=== PATIENT | female | born 1960 | race Caucasian/White ===

== ENCOUNTER → 2017-10-06 | Outpatient (REF) ==
[~2017-10-06] MED LIST: AML5 PO; ASC500 PO; CAND1TAB16 PO; CYCL10TA29 PO; DICL-195 PO; ERGO500025 PO; HYDR12.561 PO; IBU800 PO; LEV112 PO; LISI-346 PO; LOR5/325 PO; NAP550 PO; OMEP-218 PO
[2017-10-06 10:57] LABS: LDL CHOLESTEROL 92 mg/dl
== END ==
DX: Z02.9 Encounter for administrative examinations, unspecified (principal)

== ENCOUNTER → 2018-03-29 | Outpatient (CLI) | payer OTHER | LOC: LAB 15:12 | PROVIDERS: ATTEND Nurse Practitioner Family | DX: E87.8 Other disorders of electrolyte and fluid balance, not elsewhere classified (principal) | CPT/HCPCS: 36415; 82040; 82247; 82310; 82374; 82435; 82565; 82947; 84075; 84132; 84155; 84295; 84450; 84460; 84520 ==

== ENCOUNTER → 2018-03-30 | Outpatient (CLI) | payer OTHER ==
[~2018-03-30] MED LIST changes: +IOPAMIDOL 76% 75 ML INFUS BTL 75 ML ONE
--- NOTE | 2018-03-30 10:28 | RADIOLOGY IMAGING REPORT ---
FACILITY: [facility] - [place] PATIENT NAME: Bridget Rubio : 1960 MR: [id number] V: [id number] EXAM DATE: ORDERING PHYSICIAN: SOLOMON CARRASCO TECHNOLOGIST: Location: Patient: Bridget Rubio : 1960 Visit/Account:[id number] Date of Sevice: 03/30/2018 ABDOMEN/PELVIS WITH CONTRAST HISTORY: Pelvic girdle pain times several months TECHNIQUE: Following administration of IV contrast contiguous axial images acquired through the abdom en/pelvis. Coronal and sagittal reformatting also performed. Dose Lowering Technique One of the following dose optimization techniques was utilized in the performance of this exam: Autom ated exposure control; adjustment of the mA and/or kV according to the patient's size; or use of an i terative reconstruction technique. Specific details can be referenced in the facility's radiology C T exam operational policy. CONTRAST: 75 mL Isovue-370 COMPARISON: January 13, 2016 FINDINGS: Visualized lung bases: Negative. Hepatobiliary: There Is a faintly visualized enhancing mass posterior lateral right lobe of the liver measuring 2.4 cm in diameter, best seen on image 40 of series 2 . This is not identified on the pr ior CT although could be related to difference in phase of contrast enhancement.. Spleen: Negative. Adrenals: Negative. Pancreas: Negative. Kidneys ureters or bladder: There are extrarenal pelves in both kidneys. The bladder is mostly decom pressed Genitalia: The uterus appears heterogeneous and the cervix appears thickened and hypodense. There i s a hypoattenuating mass in the anterior uterus measuring 4.1 x 3.5 cm which may represent a fibroid and has increased in size when compared to the prior study. Appears to be fluid within the endometri um GI: There is diffuse colonic diverticulosis although no CT evidence of acute diverticulitis Vessels/spaces/nodes: Negative. Bones/soft tissues: There is a small umbilical hernia containing fat Additional findings: None pertinent. IMPRESSION: Family visualized is a 2.4 cm enhancing mass posterior lateral aspect right lobe of the liver is not appreciated on the prior CT which may be related two slight difference in phase of contrast enhanceme nt. Nonetheless this could be further evaluated with MR the liver with and without contrast Uterus appears heterogeneous and the cervix appears thickened and hypoechoic dense. There is a hypoa ttenuating mass anterior aspect uterus measuring 4.1 x 3.5 cm which may represent a fibroid and is in creased in size when compared the prior study. Also noted is fluid in the endometrium. Pelvic ultra sound is recommended Diffuse colonic diverticulosis although no CT evidence of acute diverticulitis Small umbilical hernia containing fat Report Dictated By: Cindy Al MD at 03/30/2018 10:06 AM Report E-Signed By: Cindy Al MD at 03/30/2018 10:23 AM WSN:[email or web address]
== END ==
LOC: CT 07:51
PROVIDERS: ATTEND Nurse Practitioner Family
DX: K42.9 Umbilical hernia without obstruction or gangrene (principal); K57.30 Diverticulosis of large intestine without perforation or abscess without bleeding; D25.9 Leiomyoma of uterus, unspecified; N85.2 Hypertrophy of uterus; R16.0 Hepatomegaly, not elsewhere classified
CPT/HCPCS: 74177; Q9967

== ENCOUNTER → 2018-04-04 | Outpatient (CLI) | payer OTHER ==
[~2018-04-04] MED LIST changes: -IOPAMIDOL 76% 75 ML INFUS BTL 75 ML ONE
--- NOTE | 2018-04-04 16:05 | RADIOLOGY IMAGING REPORT ---
FACILITY: [facility] - [place] PATIENT NAME: BRITTANY HERNANDEZ : [id number] MR: [id number] V: [id number] EXAM DATE: [id number] ORDERING PHYSICIAN: SOLOMON CARRACSO TECHNOLOGIST: Graciela Ledbetter PROCEDURE:BILATERAL DIGITAL SCREENING MAMMOGRAM WITH CAD ASSISTED INTERPRETATION & 3D TOMOSYNTHESIS COMPARISON:Prior mammograms 05/15/15, 08/22/12. INDICATIONS:SCREENING FINDINGS: A small to moderate amount of fibroglandular tissue is seen throughout the breasts. The parenchymal pattern has remained stable allowing for difference in mammographic technique & patient positioning. There is no evidence of malignant appearing mass, malignant appearing calcifications or other secondary sign of malignancy in either breast. DIAGNOSTIC CATEGORY 1--NEGATIVE. RECOMMENDATIONS: ROUTINE MAMMOGRAM AND CLINICAL EVALUATION. IMPRESSION: BIRADS 1: Negative. No significant abnormality is seen. Dictated by: Cindy Al M.D. on 04/04/2018 at 10:11 Transcribed by: SNEHAL on 04/04/2018 at 10:21 Approved by: Cindy Al M.D. on 04/04/2018 at 16:04 [facility]
== END ==
LOC: MAMO 01:02
PROVIDERS: ATTEND Nurse Practitioner Family
DX: Z12.31 Encounter for screening mammogram for malignant neoplasm of breast (principal)
CPT/HCPCS: 77063; 77067

== ENCOUNTER → 2018-05-02 | Outpatient (CLI) | payer OTHER ==
[~2018-05-02] MED LIST changes: +GADOBENATE 529MG/1ML 15ML VIAL IVP ONE; +NS(*) 0.9% 50 ML BAG 50 ML ONE
--- NOTE | 2018-05-02 14:05 | RADIOLOGY IMAGING REPORT ---
FACILITY: [facility] PATIENT NAME: Bridget Rubio : 1960 MR: [id number] V: [id number] EXAM DATE: ORDERING PHYSICIAN: SOLOMON CARRASCO TECHNOLOGIST: Location: [facility] Patient: Bridget Rubio : 1960 Visit/Account:[id number] Date of Sevice: 05/02/2018 ABDOMEN W W/O CONTRAST COMPARISON: CT abdomen with contrast 01/13/2016 and 03/30/2018 HISTORY: Abnormal CT of the liver, abdominal pain. MRI rest recommended. TECHNIQUE: Pre and post contrast multiplanar MRI of the abdomen utilizing T1 weighted and fluid sens itive sequences. Diffusion-weighted imaging was performed. CONTRAST: 15 mL MultiHance intravenously MRI ABDOMEN FINDINGS: LIVER: Normal size, morphology and background parenchymal signal intensity. Within segment 6 of the liver there is an enhancing lesion with heterogeneous intermediate T2 signal relatively homogeneous e nhancement which is isointense to blood pool on all phases. This measures 1.8 x 1.8 cm on series 14 i mage 33. The imaging features are compatible with a benign cavernous hemangioma however it is unusual in the sense that it is seen on 03/30/2018 but not seen on January 13, 2016 despite a very similar phase of IV contrast administration. No other significant liver lesions. BILIARY: Unremarkable gallbladder. No intra-or extrahepatic bile duct dilatat ion. SPLEEN: Unremarkable. Normal size. PANCREAS: Unremarkable. No appreciable lesion, fluid collection, ductal dilatation, or atrophy. ADRENALS: Unremarkable. KIDNEYS: Unremarkable. Symmetric enhancement without mass or hydronephrosis. GI/MESENTERY: Diffuse colonic diverticulosis. No visible mass, bowel wall thickening or obstruction. VASCULAR: Unremarkable. LYMPH NODES: No significantly enlarged lymph nodes. BONES: Suboptimally assessed by scan protocol but remarkable for numerous intermediate T2 vertebral body lesions which are most consistent with hemangiomas. OTHER: Negative. IMPRESSION: 1. A 1.8 cm segment 6 liver lesion seen on recent CT has MRI features which are consistent with cave rnous hemangioma. The lesion however appears new from 2016 which is unusual for hemangioma. Therefore recommend documenting a baseline ultrasound appearance to see this can be followed with ultrasound. 2. Colonic diverticulosis. Report Dictated By: Anurag Potter at 05/02/2018 1:12 PM Report E-Signed By: Anurag Potter at 05/02/2018 2:00 PM WSN:[id number]
== END ==
LOC: MRI 00:16
PROVIDERS: ATTEND Nurse Practitioner Family
DX: D18.03 Hemangioma of intra-abdominal structures (principal); K57.30 Diverticulosis of large intestine without perforation or abscess without bleeding
CPT/HCPCS: 74183; A9577; J7050

== ENCOUNTER → 2018-05-11 | Outpatient (CLI) | payer OTHER ==
[~2018-05-11] MED LIST changes: -GADOBENATE 529MG/1ML 15ML VIAL IVP ONE; -NS(*) 0.9% 50 ML BAG 50 ML ONE
--- NOTE | 2018-05-11 11:12 | RADIOLOGY IMAGING REPORT ---
FACILITY: [facility] PATIENT NAME: Bridget Rubio : 1960 MR: [id number] V: [id number] EXAM DATE: ORDERING PHYSICIAN: SOLOMON CARRASCO TECHNOLOGIST: Location: [facility] [place] Patient: Bridget Rubio : 1960 Visit/Account:[id number] Date of Sevice: 05/11/2018 ABDOMEN COMPLETE HISTORY: Liver hemangioma. COMPARISON: MRI of the abdomen dated May 02, 2018. FINDINGS: Liver: Hypoechoic lesion within the right hepatic lobe measuring 1.7 x 1.6 x 1.6 cm. Mild/moderate i nternal vascularity. Gallbladder: Unremarkable; no stones or sludge. Common duct: Normal, 3 mm diameter. Pancreas: Partially obscured by bowel, visualized aspects unremarkable. Spleen: Negative. Kidneys: Negative. Upper abdominal aorta and IVC: Patent. Ascites: None visualized. IMPRESSION: Enhancing lesion seen on MRI is not significantly changed in size. The ultrasound characteristics ar e not characteristic for typical hemangioma. Findings could represent an atypical hemangioma. Given the MRI characteristics, sonographic characteristics, and short-term development, six-month follow-u p MRI is recommended to ensure stability. Report Dictated By: Cristian Levi MD at 05/11/2018 11:02 AM Report E-Signed By: Cristian Levi MD at 05/11/2018 11:08 AM WSN:[email or web address]
== END ==
LOC: US 01:33
PROVIDERS: ATTEND Nurse Practitioner Family
DX: D18.03 Hemangioma of intra-abdominal structures (principal)
CPT/HCPCS: 76700

== ENCOUNTER → 2018-06-13 | Outpatient (CLI) | payer OTHER ==
[~2018-06-13] MED LIST changes: +OMEG-11 PO
--- NOTE | 2018-06-13 16:04 | EKG ---
FACILITY: [facility] [place] PATIENT NAME: BRITTANY HERNANDEZ : [id number] MR: [id number] V: [id number] EXAM DATE: ORDERING PHYSICIAN: DRE MORALES TECHNOLOGIST: KIRSTY Emerson Reason : PREOP Blood Pressure : / mmHG Vent. Rate : 052 BPM Atrial Rate : 052 BPM P-R Int : 122 ms QRS Dur : 086 ms QT Int : 438 ms P-R-T Axes : 019 053 028 degrees QTc Int : 407 ms Sinus bradycardia No ST-T abnormalities No previous ECGs available Confirmed by KINGS PATTON ([id number]) on 06/13/2018 6:33:00 PM Referred By: Confirmed By:KINGS PATTON
--- NOTE | 2018-06-13 17:00 | RADIOLOGY IMAGING REPORT ---
FACILITY: [facility] - [place] PATIENT NAME: Bridget Rubio : 1960 MR: [id number] V: [id number] EXAM DATE: ORDERING PHYSICIAN: DRE MORALES TECHNOLOGIST: Location: [facility] [place] Patient: Bridget Rubio : 1960 Visit/Account:[id number] Date of Sevice: 06/13/2018 Exam type: CHEST PA AND LAT History: pre-op, history of pneumonia Comparison: None. Findings: The lungs are free of acute effusions, infiltrates or edema. There is no evidence of a pneumothorax or pneumomediastinum. The cardiac silhouette is normal in size. The trachea is midline. The visual ized bones are unremarkable for age IMPRESSION: 1. No acute cardiopulmonary process seen Report Dictated By: Cindy Al MD at 06/13/2018 4:55 PM Report E-Signed By: Cindy Al MD at 06/13/2018 4:55 PM WSN:[email or web address]
== END ==
LOC: RAD 15:16
PROVIDERS: ATTEND Obstetrics & Gynecology
DX: Z01.812 Encounter for preprocedural laboratory examination (principal); Z01.818 Encounter for other preprocedural examination; Z01.810 Encounter for preprocedural cardiovascular examination; I10 Essential (primary) hypertension; D25.9 Leiomyoma of uterus, unspecified; R10.2 Pelvic and perineal pain; R00.1 Bradycardia, unspecified
CPT/HCPCS: 36415; 71046; 82040; 82247; 82310; 82374; 82435; 82565; 82947; 84075; 84132; 84155; 84295; 84450; 84460; 84520; 85027; 93005

== ENCOUNTER 2018-06-21 01:09 | Observation (INO) | payer OTHER ==
[2018-06-21] VITALS (9 sets, daily range): BP systolic 83–124; BP diastolic 58–86
[~2018-06-21] VITALS: Ht 175.3 cm; Wt 96.2 kg
[2018-06-21] MEDS ORDERED: NORMOSOL R SOLN(*) 1000 ML BAG 1,000 ML IV PRN (06:30)
[2018-06-21] MEDS ORDERED: FAMOTIDINE 20 MG TAB PO ONE (06:30)
[2018-06-21] MEDS ORDERED: CLINDAMYCIN(*) 600 MG/NS 50 ML 50 ML IV ONE (06:30)
[2018-06-21] MEDS ORDERED: MIDAZOLAM 2 MG/2 ML VIAL IVP PRN (06:30)
[2018-06-21] MEDS ORDERED: LEVOFLOXACIN/D5W*500 MG/100 ML 100 ML IVPB ONE (06:30)
[2018-06-21] MEDS ORDERED: PHENAZOPYRIDINE 200 MG TAB PO ONE (06:30)
[2018-06-21] MEDS ORDERED: LIDOCAINE/SOD BICARB 8.4% SYR ID ONE (06:30)
[2018-06-21] MEDS ORDERED: BUPIV/EPI 0.25% 1:200,000 50ML INFIL ONE (06:39)
[2018-06-21] MEDS ORDERED: ONDANSETRON 4 MG/2 ML VIAL ONE (06:51)
[2018-06-21] MEDS ORDERED: METOCLOPRAMIDE 10 MG/2 ML SDV ONE (06:51)
[2018-06-21] MEDS ORDERED: DEXAMETHASONE SOD 4 MG/ML VIAL ONE (06:51)
[2018-06-21] MEDS ORDERED: PROPOFOL EMUL(*) 10MG/ML 20 ML 20 ML ONE (06:51)
[2018-06-21] MEDS ORDERED: LIDOCAINE MPF 1% 5 ML VIAL ONE (06:51)
[2018-06-21] MEDS ORDERED: ROCURONIUM BROM 10 MG/ML 10 ML ONE (06:51)
[2018-06-21] MEDS ORDERED: fentaNYL CITR 250 MCG/5 ML AMP ONE (06:53)
[2018-06-21] MEDS ORDERED: SUGAMMADEX SOD 200 MG/2 ML SDV ONE (06:53)
[2018-06-21] MEDS ORDERED: ACETAMINOPHEN(*)1000 MG/100 ML 100 ML IVPB ONE (07:00)
[2018-06-21] MEDS ORDERED: SCOPOLAMINE 1.5 MG PATCH TD ONE (07:20)
--- NOTE | 2018-06-21 09:50 | Post Operative Note ---
Operative Note - [employer] Operative Day Date: Jun 21, 2018 Time: 09:49 Physicians Surgeon: Priti Psychologist Military Personnel: Haja Anesthesia: JACOBA Crerashaun Diagnosis Pre-Op Diagnosis: Chronic pelvic pain Fibroid Post-Op Diagnosis: Same Procedure Procedure(s): RATLH, BSO, dx cysto Specimen Removed:(Maybe N/A): Uterus, tubes, ovaries Fluids Fluids: IVF: 1500cc UOP: 300cc Estimated Blood Loss: 50cc DRE MORALES MD Jun 21, 2018 09:50
[2018-06-21] MEDS ORDERED: METOCLOPRAMIDE 10 MG/2 ML SDV IV PRN (09:55)
[2018-06-21] MEDS ORDERED: ONDANSETRON 4 MG/2 ML VIAL IV PRN (09:55)
[2018-06-21] MEDS ORDERED: MAGNESIUM HYDROXIDE* 30ML UDCP PO PRN (09:55)
[2018-06-21] MEDS ORDERED: SIMETHICONE 80 MG CHEW CHEW PRN (09:55)
[2018-06-21] MEDS ORDERED: ACETAMINOPHEN 325 MG TAB PO PRN (09:55)
[2018-06-21] MEDS ORDERED: fentaNYL CITR 100 MCG/2 ML AMP ONE (10:16)
[2018-06-21] MEDS ORDERED: OXYC-865 PO (10:46)
[2018-06-21] MEDS ORDERED: IBUP800T37 PO (10:46)
[2018-06-21] MEDS: KETOROLAC 30 MG/ML VIAL IVP SCH ×3 (11:19→23:57)
--- NOTE | 2018-06-21 13:05 | OPERATIVE REPORT 1 ---
EVENT DATE: June 21, 2018 SURGEON: Andressa Marcos MD ANESTHESIOLOGIST: Gomez Walters MD ANESTHESIA: General endotracheal. MANAGER SERVICES: Marcial Smyth DO PREOPERATIVE DIAGNOSES 1. Chronic pelvic pain. 2. Uterine fibroid. POSTOPERATIVE DIAGNOSES 1. Chronic pelvic pain. 2. Uterine fibroid. PROCEDURES PERFORMED 1. Robotic-assisted total laparoscopic hysterectomy with bilateral salpingo- oophorectomy. 2. Diagnostic cystoscopy. SPECIMENS REMOVED Uterus, bilateral fallopian tubes and bilateral ovaries. IV FLUIDS 1500 cc. URINE OUTPUT 300 cc. ESTIMATED BLOOD LOSS 50 cc. INDICATIONS FOR PROCEDURE This patient is a 58-year-old G2, P2 who presented for hysterectomy consultation. She was complaining of chronic pelvic pain with a known uterine fibroid. The uterine fibroid had been relatively stable in size but did appear to become more symptomatic. She was consented for the above said procedure. Please see history and physical for full details. DESCRIPTION OF PROCEDURE The patient was properly identified and taken to the operating room. She was placed under general endotracheal tube anesthesia, placed in the dorsal lithotomy position and prepped and prepped and draped in the usual fashion for a laparoscopic-assisted vaginal procedure. The patient received antibiotics preoperatively. Her SCDs were on and functioning. A bimanual exam was performed, which revealed a 10 cm anteverted uterus. Speculum was then placed to visualize the cervix, which was without lesion. The anterior lip was grasped with an Allis clamp. The cervix was serially dilated to 5 mm using Hegar dilators. A uterine VCare uterine manipulator was then requested and assembled. A suture was placed through the anterior lip of the cervix through the os and then from the os to the posterior lip of the cervix. This was then passed through the VCare. The VCare was then placed into the uterine fundus and the tip was insufflated. This remained in place and a colpotomy ring was advanced to be flush against the cervix and vaginal mucosa. This was then tied down with an 0 Vicryl suture. The uterine manipulator was then advanced into the vagina and secured. Adrian catheter was then placed to drain the bladder. The patient was placed in the supine position and attention was turned to the laparoscopic portion of the procedure. The supraumbilical region was infiltrated with 0.25% Marcaine with epinephrine. A Veress needle was tested and proven to be functioning. An 8 mm incision was made supraumbilically. A Veress needle was then passed through this incision and to the abdominal cavity using the double clip test. Pneumoperitoneum was then achieved. The 8 mm trocar was introduced through the supraumbilical midline incision under direct visualization using a [employer] laparoscope. Once entry into the abdominal cavity was confirmed, the remaining locations of the trocars were planned with two on the right and two on the left. The two 8 mm trocars were inserted under direct visualization on the patient's right side after infiltrating with 0.25% Marcaine and making 8 mm incisions with the scalpel on the patient's left side and 11 mm incision was made with the most lateral incision, 8 mm in the more medial. These two ports were also introduced under direct visualization. At this time, the patient was placed into Trendelenburg position and the [employer] Robotic System was prepared for docking. It was then brought in and aligned. The endoscope part was docked. The endoscope was then introduced and targeting was performed on the uterus. The remaining arms were then docked without difficulty. The fenestrated bipolar grasper was progressed with monopolar scissors and then advanced under direct visualization into the pelvis and energy was connected. At this time, I was able to sterile attire and enter the console to initiate the hysterectomy. Examination of the pelvis revealed no significant adhesions. There was evidence of a relatively large uterine fibroid, which appeared to be intramural, at the anterior fundus. In order to initiate the salpingo- oophorectomy on the patient's right side, the right ureter was unable to be identified initially. Therefore, the round ligament was cauterized and ligated, which allowed me to open the peritoneum towards the retroperitoneal space. This area was further dissected in order to assure the infundibulopelvic ligament was isolated away from the ureter. The IP ligament was then able to cauterized and transected using combination of bipolar and monopolar scissors. Once this was achieved, the fallopian tube was then taken down further from the pelvic sidewall and the posterior peritoneum up to the level of where the round ligament had been transected. The remainder of the posterior aspect of the broad ligament was then brought down and opened up posteriorly until the cervical cuff was identified. The anterior peritoneum was then further dissected off to allow separation of the vesicouterine peritoneum. The uterine vessels were then identified, cauterized and transected in order to allow the colpotomy to be performed. Attention was then turned to the patient's left side, where the left ureter was also unable to be identified. Therefore, the peritoneum was opened up similar to the right side along the sidewall until the ureter was able to be identified and noted to be far away from the IP ligament. The IP ligament on the left side was then skeletonized, cauterized and transected. The tissue was then further brought down to the level of the broad ligament where the posterior aspect of the peritoneum was dissected off to the level of the colpotomy ring. The anterior peritoneum was then brought down and the vesicouterine peritoneum was completely skeletonized to allow for the colpotomy to be performed. The left uterine arteries were then cauterized and transected and brought off the colpotomy ring. The colpotomy was then initiated posteriorly with identification of the colpotomy ring. The colpotomy was continued in a circumferential fashion until the entire colpotomy was completed. The uterus was then delivered through the vagina with some difficulty. This did require Dr. Smyth to insert a single-tooth tenaculum through the vagina into the peritoneal cavity, where I was able to place the cervix into the tenaculum under direct visualization and he was able to bring the uterus with the fibroid intact out of the vagina. A bulb grenade was then placed into the vagina to maintain pneumoperitoneum. The cuff was copiously irrigated and noted to be hemostatic. An 0 Vicryl suture was utilized in a figure-of-8 manner to reapproximate the tissue on the right corner. A V-Loc was then initiated on the left side and following to the right the cuff was reapproximated with an unlock suture. Once this was completely closed, the suture was followed backwards with one additional suture towards the left. Once this was completed, copious irrigation was again performed, revealing adequate hemostasis. Using the Ole-Medina device in the fascia, the assistant women's soccer coach port was then closed using an 0-Vicryl with robotic assistance. All the robotic arms were undocked and the instruments were removed. The pneumoperitoneum was relieved and the 11 mm fascia was tied down. All five skin incision were reapproximated using a 4-0 Monocryl and closed with Dermabond. The Adrian catheter was removed from the bladder. A cystoscope was assembled and introduced through the urethra under direct visualization into the bladder. The entire bladder was evaluated and noted to be normal without any lesion or sutures. Bilateral ureteral jets were noted with Pyridium-stained urine. The cystoscope was then removed and the Adrian catheter was replaced. The patient tolerated this procedure well and recovered in the Post-Anesthesia Care Unit. All sponge, needle and instrument counts were correct at the end of this procedure. CHRISTY
[2018-06-21] MEDS: HYDROmorphone HCL 2 MG/ML SDV IVP PRN ×2 (15:42→21:59)
--- NOTE | 2018-06-21 16:59 | OB/GYN Progress Note ---
OB Subjective Progress Notes Subjective Pt is generally feeling well. She is sleepy. She is tolerating po. Pain is controlled with percocet and one dose of dilaudid. No CP, SOB, dizziness. Adrian still in. No ambulating yet. OB Objective Physical Exam Vital Signs Date Time Temp Pulse Resp B/P (MAP) Pulse Ox O2 Delivery O2 Flow Rate FiO2 06/21/18 15:06 65 16 103/79 (87) 94 Nasal Cannula 1.0 06/21/18 11:00 97.5 General Appearance: Alert/Awake/No Acute Distress Neurological: No Gross deficits Eyes: Normal Extraocular Movement & Vison Cardiovascular: Normal Rhythm & Peripheral Pulses Respiratory: No Respiratory Distress, Clear to Auscultation Abdomen: Soft, Non-Tender, Non-Distended Incision: Clean, Dry, Intact Musculoskeletal: No Weakness/Pain Extremities: No Cyanosis,Clubbing or Edema Integumentary: Skin Intact without Lesions or Rash Psychological: Alert & Oriented X3, Appropriate Mood & Affect Assessment and Plan Problems: (1) Status post laparoscopic hysterectomy Assessment & Plan: POD#0 s/p RATLH, BSO, dx cysto. No concerns. Routine postop cares. DRE MORALES MD Jun 21, 2018 16:59
[2018-06-21] MEDS: DLR(*) 1000 ML BAG 1,000 ML IV PRN (19:14)
[2018-06-21] MEDS: FAMOTIDINE 20 MG TAB PO SCH (21:16)
[2018-06-21] MEDS: DOCUSATE CALCIUM 240 MG CAP PO SCH (21:16)
[2018-06-22] MEDS: DLR(*) 1000 ML BAG 1,000 ML IV PRN (02:12)
[2018-06-22] MEDS: HYDROmorphone HCL 2 MG/ML SDV IVP PRN (04:44)
[2018-06-22 04:45] VITALS: BP 103/71
[2018-06-22] MEDS ORDERED: IBUPROFEN 800 MG TAB PO PRN (06:00)
[2018-06-22 06:21] LABS: PLATELET COUNT, AUTOMATED 315 K/uL (150-450)
[2018-06-22 07:20] VITALS: BP 126/63
[2018-06-22] MEDS ORDERED: ONDANSETRON 4 MG ODT TABDP SL PRN (07:40)
--- NOTE | 2018-06-22 08:11 | OB/GYN Progress Note ---
OB Subjective Progress Notes Subjective Patient slept well last night. She was given IV Dilaudid all night due to some nausea. She has not yet ambulated. Adrian was just taken out, and she has not voided. No vaginal bleeding. No chest pain, shortness of breath or dizziness. OB Objective Physical Exam Vital Signs Date Time Temp Pulse Resp B/P (MAP) Pulse Ox O2 Delivery O2 Flow Rate FiO2 06/22/18 04:45 98.5 61 16 103/71 (82) 94 Nasal Cannula 2.0 Intake and Output 06/22/18 07:00 Intake Total 3777 ml Output Total 1000 ml Balance 2777 ml Intake Oral 300 ml IV Total 3477 ml Output Urine Total 950 ml Estimated Blood Loss 50 ml General Appearance: Alert/Awake/No Acute Distress Neurological: No Gross deficits Eyes: Normal Extraocular Movement & Vison Cardiovascular: Normal Rhythm & Peripheral Pulses Respiratory: No Respiratory Distress, Clear to Auscultation Abdomen: Soft, Non-Tender, Non-Distended Incision: Clean, Dry, Intact Musculoskeletal: No Weakness/Pain Extremities: No Cyanosis,Clubbing or Edema Integumentary: Skin Intact without Lesions or Rash Psychological: Alert & Oriented X3, Appropriate Mood & Affect Result Diagram: 06/22/18 0530 Assessment and Plan Problems: (1) Status post laparoscopic hysterectomy Assessment & Plan: POD#1 s/p RATLH, BSO, dx cysto. Will try zofran ODT and transition to percocet. DRE MORALES MD Jun 22, 2018 08:11
[2018-06-22] MEDS ORDERED: ONDA4TAB9 PO (08:12)
[2018-06-22] MEDS: FAMOTIDINE 20 MG TAB PO SCH (08:43)
[2018-06-22] MEDS: DOCUSATE CALCIUM 240 MG CAP PO SCH (08:43)
[2018-06-22] MEDS ORDERED: INFLUENZA VIRUS VAC 0.5ML SYR IM ONLY ONE (09:00)
[2018-06-22 12:50] VITALS: BP 110/70
--- NOTE | 2018-06-22 17:22 | OB/GYN Discharge Summary ---
Discharge Summary Reason for Hosp/Final Diag: (1) Status post laparoscopic hysterectomy Hospital Course & Plan: POD#1 s/p RATLH, BSO, dx cysto. She has done well postoperatively. She will be sent home with Percocet, Motrin and Zofran ODT. She is still requiring oxygen, but is still somewhat recovering from pneumonia. She will follow up with her PCP in the next week to see about weaning off. Lates Vital Signs Vital Signs Date Time Temp Pulse Resp B/P (MAP) Pulse Ox O2 Delivery O2 Flow Rate FiO2 06/22/18 14:20 61 90 Room Air 06/22/18 13:45 16 1.0 06/22/18 12:50 98.0 110/70 (83) Weight (Pounds): 212 Result Diagram: 06/22/18 05 Condition: Improved Discharge: Home, Self Detention Meds Active Scripts Ondansetron 4 Mg Odt (ONDANSETRON 4 MG ODT) 4 Mg Tab.rapdis, 4 MG PO Q8H PRN for nausea, #20 TAB 0 Refills Prov:DRE MARCOS MD 06/22/18 Oxycodone Hcl/Acetaminophen (PERCOCET 5-325 MG TABLET) 1 Each Tablet, 1 TAB PO Q4-6H PRN for pain, #30 TAB 0 Refills Prov:DRE MARCSO MD 06/21/18 Ibuprofen (IBUPROFEN) 800 Mg Tablet, 1 TAB PO Q8H PRN for pain, #30 TAB 0 Refills TAKE WITH FOOD EVERY 8 HOURS Prov:DRE MARCOS MD 06/21/18 Reported Medications Mongo-3 Fatty Acids/Fish Oil (FISH OIL 1,000 MG CAPSULE) 1 Each Capsule, 1 EACH PO DAILY, CAPSULE 06/13/18 Hydrochlorothiazide (HYDROCHLOROTHIAZIDE) 12.5 Mg Tablet, 1 TAB PO QDAY, TAB 02/01/15 Ergocalciferol (Vitamin D) 50,000 Unit Capsule, 29689 UNIT PO BIMONTHLY, 0 R efills 03/18/09 Lisinopril (Lisinopril) 10 Mg Tablet, 40 MG PO DAILY, 0 Refills UNSURE OF DOSE. 03/18/09 Ascorbic Acid (Vitamin C) 500 Mg Tab, 500 MG PO QDAY, 0 Refills 03/18/09 Levothyroxine Sodium (Synthroid/Levothroid) 0.112 Mg Tab, 100 MCG PO QDAY, 0 Refills 03/18/09 Amlodipine Besylate (Norvasc) 5 Mg Tab, 5 MG PO QDAY, 0 Refills 03/18/09 Follow up Referrals: [facility] - In One Week with SOLOMON CARRASCO CUSTOM DECORATING CONSULTANT - [facility] DRE [facility]ARC[facility] Discharge Diet: As Tolerates Discharge Activity: As Tolerates, No Heavy Lifting x 6 wks Special Instructions: Follow up with PCP next week for oxygen evaluation after surgery. Follow up with Dr. Marcos in 2 weeks. Call for concerns or questions. Copies to: SOLOMON CARRASCO ; DRE MARCOS MD Jun 22, 2018 17:22
== END 2018-06-22 15:06 | disposition home or self-care (01) ==
LOC: OR 01:09 → PED 10:50
PROVIDERS: ADMIT Obstetrics & Gynecology; ATTEND Obstetrics & Gynecology
DX: D25.1 Intramural leiomyoma of uterus (principal); R10.2 Pelvic and perineal pain
CPT/HCPCS: 36415; 58571; 85025; 88307; G0378; J0131; J1100; J1170; J1885; J1956; J2001; J2250; J2405; J2704; J2765; J3010; J3490; S0119; S2900; 88302

== ENCOUNTER → 2018-10-31 | Outpatient (REF) ==
[~2018-10-31] MED LIST changes: +ESTR0.5T16 PO; +IBUP800T37 PO; +ONDA4TAB9 PO; +OXYC-865 PO
[2018-10-31 09:34] LABS: LDL CHOLESTEROL 82 mg/dl
== END ==
DX: Z02.9 Encounter for administrative examinations, unspecified (principal)

== ENCOUNTER → 2018-11-17 | Outpatient (CLI) | payer OTHER ==
--- NOTE | 2018-11-17 10:05 | RADIOLOGY IMAGING REPORT ---
FACILITY: [facility] - [place] PATIENT NAME: Bridget Rubio : 1960 MR: [id number] V: [id number] EXAM DATE: ORDERING PHYSICIAN: SOLOMON CARRASCO TECHNOLOGIST: [place] [facility] [place] : 1960 Visit/Account:[id number] Date of Sevice: 11/17/2018 CHEST PA LAT COMPARISONS: 2 view chest dated June 13, 2018 ADDITIONAL PERTINENT HISTORY: Cough FINDINGS: Cardiomediastinal silhouette: Negative. Pulmonary vasculature: Negative. Lung kong: Negative. Pleural spaces: Negative. Osseous structures: Negative. Surrounding soft tissues: Negative. IMPRESSION: No evidence of acute cardiopulmonary disease. Report Dictated By: Nate Butt MD at 11/17/2018 10:00 AM Report E-Signed By: Nate Butt MD at 11/17/2018 10:01 AM WSN:[email or web address]
== END ==
LOC: RAD 09:33
PROVIDERS: ATTEND Nurse Practitioner Family
DX: R05 Cough (principal)
CPT/HCPCS: 71046